=== PATIENT | male | born 1945 | race Caucasian/White ===

== ENCOUNTER → 2019-06-07 | Outpatient (CLI) | payer MEDICARE | LOC: GMAM 14:29 | PROVIDERS: ATTEND Family Medicine | DX: R00.2 Palpitations (principal) ==

== ENCOUNTER → 2019-06-09 | Outpatient (CLI) | payer MEDICARE ==
--- NOTE | 2019-06-09 16:35 | MRI ---
EXAM DESCRIPTION: Brain w/o Contrast: MRI. CLINICAL HISTORY: SYNCOPE COMPARISON: MRI scan of the brain noncontrast in August 2015. TECHNIQUE: Multiplanar, high-field MRI unit, multiple diffusion sequences, multiple conventional sequences without contrast. FINDINGS: Hyperintense FLAIR and T2-weighted signal in the periventricular white matter abutting the bilateral occipital horns and posterior ventricular bodies. Focal hyperintense FLAIR/T2 signal subcortical white matter posterior right frontal lobe.. No hemorrhage, no cerebral edema, no mass-effect. Normal signal bilateral basal ganglia. Normal signal in the brainstem and cerebellar hemispheres. No hemorrhage, no parenchymal edema, no mass-effect. Concordance of the diffusion and non-diffusion sequences with no diffusion restriction. Limited evaluation of the posterior fossa due to artifact possibly from dental hardware with partial distortion also of the bilateral temporal lobes. Cortical sulci, ventricles, and other CSF spaces, and the subdural spaces are minimally prominent for patient's age.. No effacement or displacement. No midline shift. No extra-axial hemorrhage. Normal flow signal void in the major vessels of the [place], and the venous sinuses. IACs are symmetric bilaterally. Normal signal in the bilateral mastoid air cells. No mass effect in the bilateral cerebellopontine angles. Pituitary gland occupies only the base of the sella, which contains mostly CSF. Base of the cerebellar tonsils is at the level of the foramen magnum. Minimal mucoperiosteal thickening in the ethmoid air cells.. The bony calvarium is intact. IMPRESSION: 1. Minimal periventricular white matter abnormal signal most likely related to cerebral microvascular disease and/or aging. No intra-axial extra-axial hemorrhage, no extra-axial abnormal fluid, no mass effect. Stable since the prior study. 2. Normal noncontrast diffusion study with no evidence of acute or subacute, significant ischemia or infarction . Stable since the prior study. 3. Minimal chronic paranasal sinusitis. Small pituitary with partially "empty" sella, containing CSF. Minimal prominence of the extra-axial CSF spaces, ventricles, and basilar cisterns. Stable since the prior study. Electronically signed by: Jak Robledo MD 06/09/2019 4:34 PM [facility]
== END ==
LOC: MRI 11:00
PROVIDERS: ATTEND Family Medicine
DX: J32.9 Chronic sinusitis, unspecified (principal); E23.6 Other disorders of pituitary gland; R55 Syncope and collapse

== ENCOUNTER → 2019-07-05 | Outpatient (CLI) | payer MEDICARE | LOC: RESP 11:09 | PROVIDERS: ATTEND Family Medicine | DX: R00.2 Palpitations (principal) ==